=== PATIENT | female | born 1995 | race African-American/Black ===

== ENCOUNTER 2018-05-22 10:53 | Emergency (ER) | payer OTHER, SELFPAY ==
[2018-05-22] MEDS ORDERED: DIPHENHYDRAMINE 25 MG TAB/CAP ONE (11:26)
[2018-05-22] MEDS ORDERED: FAMOTIDINE 20 MG TAB ONE (11:27)
[2018-05-22] MEDS ORDERED: predniSONE 20 MG TAB ONE (11:27)
--- NOTE | 2018-05-22 11:57 | ER ---
Nurse's Notes [facility] Name: Yony Matthew Age: 22 yrs Sex: Female : 1995 Arrival Date: 05/22/2018 Time: 10:57 Bed 26 Private MD: Petar Palomares Diagnosis: Allergy to other foods;Urticaria Presentation: 05/22 10:58 Presenting complaint: Patient states: rash to face and bilateral eye swelling that sv started 2 days ago after drinking milk. Transition of care: patient was not received from another setting of care. Onset of symptoms was May 20, 2018. Care prior to arrival: Medication(s) given: Benadryl taken for the past 2 days. 10:58 Method Of Arrival: Ambulatory sv 10:58 Acuity: KEVIN 4 sv 11:28 Risk Assessment: Do you want to hurt yourself or someone else? Patient reports no la1 desire to harm self or others. Initial Sepsis Screen: Does the patient meet any 2 criteria? No. Patient's initial sepsis screen is negative. Does the patient have a suspected source of infection? No. Patient's initial sepsis screen is negative. Historical: - Allergies: 11:01 Demerol; sv - PMHx: 11:00 Asthma; Depression; Heart Murmur; suicidal ideation; sv - PSHx: 11:00 Appendectomy; sv - Immunization history:: Adult Immunizations up to date. - Social history:: Smoking status: Patient uses tobacco products, smokes one pack cigarettes per day. - Ebola Screening: : No symptoms or risks identified at this time. Screenin:28 Abuse screen: Denies threats or abuse. Nutritional screening: No deficits noted. la1 Tuberculosis screening: No symptoms or risk factors identified. Fall Risk None identified. Assessment: 11:28 General: Appears in no apparent distress. Behavior is calm, cooperative. Pain: Denies la1 pain. Neuro: No deficits noted. Cardiovascular: Capillary refill < 3 seconds Patient's skin is warm and dry. Respiratory: Airway is patent Trachea midline Respiratory effort is even, unlabored, Respiratory pattern is regular, symmetrical, Breath sounds are clear bilaterally. Vital Signs: 10:59 BP 134 / 93; Pulse 74; Resp 18; Temp 97.6; Pulse Ox 100% ; Height 5 ft. 4 in. (162.56 sv cm); Pain 0/10; ED Course: 10:57 Patient arrived in ED. as 10:57 Petar Palomares is Private Physician. as 10:59 Triage completed. sv 10:59 Arm band placed on right wrist. sv 11:07 Raj Rivera NP is PHCP. pm1 11:07 Devan Miramontes MD is Attending Physician. pm1 11:19 Han Cain, RN is Primary Nurse. la1 11:28 Call light in reach. la1 11: No provider procedures requiring assistance completed. Patient did not have IV access la1 during this emergency room visit. Administered Medications: 11:25 Drug: Pepcid 20 mg Route: PO; la1 12:03 Follow up: Response: No adverse reaction la1 11:25 Drug: predniSONE 60 mg Route: PO; la1 12:02 Follow up: Response: No adverse reaction la1 11:25 Drug: Benadryl 25 mg Route: PO; la1 12:02 Follow up: Response: No adverse reaction la1 Outcome: :57 Discharge ordered by MD. pm1 12:04 Discharged to home ambulatory. la1 12:04 Condition: stable 12:04 Discharge instructions given to patient, Instructed on discharge instructions, follow up and referral plans. medication usage, Demonstrated understanding of instructions, follow-up care, medications, Prescriptions given X 3. 12:04 Patient left the ED. la1 Signatures: Flaquita Barr RN MAMADOU Millie Tatum as Han Cain RN RN la Raj Rivera NP [employer] pm1 Corrections: (The following items were deleted from the chart) 11:00 10:59 Pulse 74bpm; Resp 18bpm; Pulse Ox 100%; Height 5 ft. 4 in.; Pain 0/10; sv sv 11:01 10:59 BP 134 / 93; Pulse 74bpm; Resp 18bpm; Pulse Ox 100%; Height 5 ft. 4 in.; Pain sv 0/10; sv
--- NOTE | 2018-05-22 11:57 | EDPHYS ---
Physician Documentation [facility] Name: Yony Matthew Age: 22 yrs Sex: Female : 1995 Arrival Date: 05/22/2018 Time: 10:57 Bed 26 Private MD: Petar Palomares ED Physician Devan Miramontes HPI: 05/22 11:25 This 22 yrs old Black Female presents to ER via Ambulatory with complaints of Facial pm1 Swelling, Rash. 11:25 Onset: The symptoms/episode began/occurred 2 day(s) ago. Associated signs and symptoms: pm1 Pertinent negatives: abdominal pain, fever, shortness of breath, sore throat. Modifying factors: The patient symptoms are alleviated by nothing, the patient symptoms are aggravated by nothing. The patient has not experienced similar symptoms in the past. The patient has not recently seen a physician. Patient reports facial swelling and rash to neck after drinking a glass of milk. Historical: - Allergies: 11:01 Demerol; sv - PMHx: 11:00 Asthma; Depression; Heart Murmur; suicidal ideation; sv - PSHx: 11:00 Appendectomy; sv - Immunization history:: Adult Immunizations up to date. - Social history:: Smoking status: Patient uses tobacco products, smokes one pack cigarettes per day. - Ebola Screening: : No symptoms or risks identified at this time. ROS: 11:25 Constitutional: Negative for fever, chills, and weight loss, Eyes: Negative for injury, pm1 pain, redness, and discharge, ENT: Negative for injury, pain, and discharge, Neck: Negative for injury, pain, and swelling, Cardiovascular: Negative for chest pain, palpitations, and edema, Respiratory: Negative for shortness of breath, cough, wheezing, and pleuritic chest pain, Abdomen/GI: Negative for abdominal pain, nausea, vomiting, diarrhea, and constipation, Back: Negative for injury and pain, : Negative for injury, bleeding, discharge, and swelling, MS/Extremity: Negative for injury and deformity. 11:25 Neuro: Negative for headache, weakness, numbness, tingling, and seizure. 11:25 Skin: Positive for swelling, of the face, Itching and rash to neck. Exam: 11:25 Constitutional: This is a well developed, well nourished patient who is awake, alert, pm1 and in no acute distress. Head/Face: Normocephalic, atraumatic. Eyes: Pupils equal round and reactive to light, extra-ocular motions intact. Lids and lashes normal. Conjunctiva and sclera are non-icteric and not injected. Cornea within normal limits. Periorbital areas with no swelling, redness, or edema. ENT: Nares patent. No nasal discharge, no septal abnormalities noted. Tympanic membranes are normal and external auditory canals are clear. Oropharynx with no redness, swelling, or masses, exudates, or evidence of obstruction, uvula midline. Mucous membranes moist. Neck: Trachea midline, no thyromegaly or masses palpated, and no cervical lymphadenopathy. Supple, full range of motion without nuchal rigidity, or vertebral point tenderness. No Meningismus. Chest/axilla: Normal chest wall appearance and motion. Nontender with no deformity. No lesions are appreciated. Cardiovascular: Regular rate and rhythm with a normal S1 and S2. No gallops, murmurs, or rubs. Normal PMI, no JVD. No pulse deficits. Respiratory: Lungs have equal breath sounds bilaterally, clear to auscultation and percussion. No rales, rhonchi or wheezes noted. No increased work of breathing, no retractions or nasal flaring. Abdomen/GI: Soft, non-tender, with normal bowel sounds. No distension or tympany. No guarding or rebound. No evidence of tenderness throughout. Back: No spinal tenderness. No costovertebral tenderness. Full range of motion. 11:25 Skin: Appearance: normal except for affected area, trace swelling to cheeks. Patient showed me a picture that had swelling to bilateral eyelids that are now resolved. Vital Signs: 10:59 BP 134 / 93; Pulse 74; Resp 18; Temp 97.6; Pulse Ox 100% ; Height 5 ft. 4 in. (162.56 sv cm); Pain 0/10; MDM: 11:08 Patient medically screened. pm1 11:55 Data reviewed: vital signs. Data interpreted: Pulse oximetry: on room air is 100 %. pm1 Interpretation: normal. Counseling: I had a detailed discussion with the patient and/or guardian regarding: the historical points, exam findings, and any diagnostic results supporting the discharge/admit diagnosis, the need for outpatient follow up, for definitive care, an allergy/command and control specialist, to return to the emergency department if symptoms worsen or persist or if there are any questions or concerns that arise at home. Administered Medications: 11:25 Drug: Pepcid 20 mg Route: PO; la1 12:03 Follow up: Response: No adverse reaction la1 11:25 Drug: predniSONE 60 mg Route: PO; la1 12:02 Follow up: Response: No adverse reaction la1 11:25 Drug: Benadryl 25 mg Route: PO; la1 12:02 Follow up: Response: No adverse reaction la1 Disposition: 14:41 Co-signature as Attending Physician, Devan Miramontes MD I agree with the assessment and kdr plan of care. Disposition: 05/22/18 11:57 Discharged to Home. Impression: Allergy to other foods, Urticaria. - Condition is Stable. - Discharge Instructions: Allergies, Adult, Food Allergy, Hives. - Prescriptions for Benadryl 25 mg Oral Capsule - take 1 capsule by ORAL route every 6 hours As needed; 30 tablet. Pepcid 20 mg Oral Tablet - take 1 tablet by ORAL route every 12 hours for 5 days; 10 tablet. Medrol (Joshua) 4 mg Oral Tablets, Dose Pack - take 1 tablet by ORAL route as directed - follow package instructions; 1 packet. - Family Work Release, Medication Reconciliation Form, Thank You Letter form. - Follow up: Emergency Department; When: As needed; Reason: Worsening of condition. Follow up: Private Physician; When: 2 - 3 days; Reason: Recheck today's complaints, Continuance of care, Re-evaluation by your physician. - Problem is new. - Symptoms have improved. Signatures: Flaquita Barr RN RN Devan Miramontes MD MD [facility] Han Cain RN RN la1 Raj Rivera, RETORT PRE COOKER RETORT PRE COOKER pm1 Corrections: (The following items were deleted from the chart) 12:04 11:57 05/22/2018 11:57 Discharged to Home. Impression: Allergy to other foods; la1 Urticaria. Condition is Stable. Forms are Medication Reconciliation Form, Thank You Letter, Antibiotic Education, Prescription Opioid Use. Follow up: Emergency Department; When: As needed; Reason: Worsening of condition. Follow up: Private Physician; When: 2 - 3 days; Reason: Recheck today's complaints, Continuance of care, Re-evaluation by your physician. Problem is new. Symptoms have improved. pm1
[2018-05-22 12:09] VITALS: BP 134/93; TEMP 97.6; O2SAT 100
== END 2018-05-22 12:04 | disposition home or self-care (01) ==
LOC: ER 10:53
DX: T78.1XXA Other adverse food reactions, not elsewhere classified, initial encounter (principal); L50.9 Urticaria, unspecified; J45.909 Unspecified asthma, uncomplicated; F17.210 Nicotine dependence, cigarettes, uncomplicated; X58.XXXA Exposure to other specified factors, initial encounter; Z88.6 Allergy status to analgesic agent
CPT/HCPCS: 99283; J7512